=== PATIENT | male | born 1990 | race Caucasian/White ===

== ENCOUNTER 2016-05-28 09:48 | Emergency (ER) | payer MEDICAID, SELFPAY ==
[2016-05-28 10:02] VITALS: BP 161/94
--- NOTE | 2016-05-28 10:17 | EDM.PDOC ---
[id number]: SORE THROAT, TROUBLE BREATHING Time Seen by Provider: 05/28/16 10:05 Source: Reports: Patient History Limitations: Reports: No limitations - History of Present Illness INITIAL COMMENTS - FREE TEXT/NARRATIVE: 25-year-old male with a persistent cough for the last 3 days, pressure on the left side of his chest, sore throat, nasal congestion. He does have a history of asthma but it does not feel like asthma, inhalers are not helping. He has a mild to moderate headache. No significant shortness of breath. No nausea or vomiting, no fevers or chills he knows of. He was at work this morning and they sent him in because he sounded so terrible. Severity: moderate Location, General: Reports: chest Associated Symptoms: Reports: cough, other (Nasal congestion, sore throat). Denies: nausea/vomiting - Related Data Allergies/ADRs: Allergies Allergy/AdvReac Type Severity Reaction Status Date / Time sumatriptan [From Imitrex] Allergy Burning Verified 10/01/13 22:46 sumatriptan succinate Allergy Burning Verified 10/01/13 22:46 [From Imitrex] Home Meds: Home Meds NK [No Known Home Meds] 05/28/16 [History] Past Medical History Respiratory History: Reports: Asthma - Past Surgical History GI Surgical History: Reports: Appendectomy, Cholecystectomy Social & Family History - Tobacco Use Smoking Status *Q: Heavy Tobacco Smoker Years of Tobacco use: 10 Packs/Tins Daily: 1 Second Hand Smoke Exposure: Yes - Caffeine Use Caffeine Use: Reports: Coffee - Alcohol Use Days Per Week of Alcohol Use: 0 - Recreational Drug Use Recreational Drug Use: No Drug Use in Last 12 Months: Yes Recreational Drug Type: Reports: Marijuana/Hashish Recreational Drug Use Frequency: Monthly Recreational Drug Last Use: t-2 ED ROS GENERAL - Review of Systems Review Of Systems: See Below Constitutional: Reports: malaise. Denies: fever, chills HEENT: Reports: Rhinitis, Throat pain. Denies: Ear pain Respiratory: Reports: Cough. Denies: Sputum Cardiovascular: Reports: Chest pain (Left-sided tightness with cough) GI/Abdominal: Denies: Abdominal pain, Nausea, Vomiting : Reports: no symptoms Skin: Reports: no symptoms Neurological: Reports: Headache ED EXAM, GENERAL - Physical Exam Exam: See Below Exam Limited By: No limitations General Appearance: alert, no apparent distress, other (No distress but the patient does have a very persistent dry cough) Throat/Mouth: Other (Pharyngeal erythema is present) Neck: No: lymphadenopathy (R), lymphadenopathy (L) Respiratory/Chest: no respiratory distress, lungs clear. No: wheezing Neurological: alert, oriented Psychiatric: normal affect, normal mood Skin Exam: Warm, Dry Course - Vital Signs Last Recorded V/S: Last Vital Signs Temp 99.2 F 05/28/16 10:02 Pulse 99 05/28/16 10:02 Resp 15 05/28/16 10:02 BP 161/94 H 05/28/16 10:02 Pulse Ox 96 05/28/16 10:02 - Orders/Labs/Meds Orders: Active Orders 24 hr Category Date Time Status Chest 2V [CR] Routine Exams 05/28/16 10:12 Taken CULTURE STREP A CONFIRMATION [RM] Routine Lab 05/28/16 10:12 Results STREP SCRN A RAPID W CULT CONF [] Routine Lab 05/28/16 10:12 Results - Re-Assessments/Exams Free Text/Narrative Re-Assessment/Exam: 05/28/16 10:17 A rapid strep was obtained and the patient received a two-view chest x-ray. 05/28/16 10:24 Chest x-ray was normal. 05/28/16 10:35 Strep was negative. Patient will be treated with 60 mg of prednisone daily for the next 3-6 days along with Tessalon Perles. He can return at any time if worsening. Departure - Departure Time of Disposition: 10:42 Disposition: Home, Self-Care 01 Condition: good Clinical Impression: Bronchitis Instructions: Acute Bronchitis, [id number] Referrals: PCP,None [Primary Care Provider] - Forms: ED Department Discharge Care Plan Goals: Take 6 pills of prednisone with food daily for the next 2-4 days. Use benzonatate pearls as directed for cough suppression. Rest and fluids the next 2-3 days and increase activity as tolerated, consider recheck in 3-4 days if not improving satisfactorily. Return anytime if worsening or concerns. - My Orders Last 24 Hours: My Active Orders 05/28/16 10:12 Chest 2V [CR] Routine CULTURE STREP A CONFIRMATION [RM] Routine STREP SCRN A RAPID W CULT CONF [RM] Routine - Assessment/Plan Last 24 Hours: My Active Orders 05/28/16 10:12 Chest 2V [CR] Routine CULTURE STREP A CONFIRMATION [RM] Routine STREP SCRN A RAPID W CULT CONF [RM] Routine
--- NOTE | 2016-05-30 09:02 | CR ---
Chest 2V HISTORY: Dyspnea FINDINGS: The heart and vascular structures are normal in appearance. No infiltrates or effusions ar e demonstrated. The skeletal structures are unremarkable. IMPRESSION: Negative exam.
== END 2016-05-28 10:42 | disposition home or self-care (01) ==
LOC: JP.ED 09:48
DX: J40 Bronchitis, not specified as acute or chronic (principal); F17.210 Nicotine dependence, cigarettes, uncomplicated; Z90.49 Acquired absence of other specified parts of digestive tract; Z88.8 Allergy status to other drugs, medicaments and biological substances
CPT/HCPCS: 71020; 71020-26; 87081; 87430; 99283; 99285

== ENCOUNTER 2023-11-09 15:12 | Inpatient (IN) | payer MEDICAID ==
[2023-11-09 16:01] LABS: CREATININE 0.8 mg/dL (0.7-1.3); EST CRCL DRUG DOSING (CG) 128.88 mL/min; ESTIMATED GFR 118 mL/min (>60)
[2023-11-09] MEDS: HYDROmorphone 0.5 MG/0.5 ML Syringe IVPUSH ONE (16:13)
[2023-11-09] MEDS: Ondansetron 4 MG/2 ML SDV IVPUSH ONE (16:13)
[2023-11-09 16:19] LABS: BASOPHILS ABSOLUTE AUTO 0.05 K/uL (0.00-0.10); BASOPHILS PERCENT AUTO 0.3 % (0.1-1.3); EOSINOPHILS PERCENT AUTO 0.1 % (0.0-5.4); HEMATOCRIT 44.7 % (38.4-49.7); HEMOGLOBIN 16.8 g/dL (12.9-16.9); IMMATURE GRAN ABSOLUTE AUTO 0.06 K/uL (0.00-0.23); IMMATURE GRAN PERCENT AUTO 0.3 % (0.0-0.7); LYMPHOCYTES PERCENT AUTO 12.2 % (11.4-47.7); MEAN CORPUSCULAR HEMOGLOBIN 33.6 pg (31.6-35.5); MEAN CORPUSCULAR HGB CONC 37.6 g/dL (31.6-35.5); MEAN CORPUSCULAR VOLUME 89.4 fL (81.4-99.0); MONOCYTES ABSOLUTE AUTO 1.59 K/uL (0.20-0.90); MONOCYTES PERCENT AUTO 9.3 % (3.3-12.6); NEUTROPHILS ABSOLUTE AUTO 13.34 K/uL (1.0-7.6); NEUTROPHILS PERCENT AUTO 77.8 % (40.0-78.1); PLATELET COUNT,PLT 343 K/uL (130-375); WHITE BLOOD CELL COUNT,WBC 17.2 K/uL (3.2-11.0)
[2023-11-09] MEDS: Sodium Chloride 0.9% 1,000 ML IV SCH ×3 (16:19→19:13)
[2023-11-09 16:20] LABS: EOSINOPHILS ABSOLUTE AUTO 0.02 K/uL (0.00-0.40)
[2023-11-09] MEDS: Iopamidol 612 MG/ML 100 ML Bottle IV SCH (16:24)
[2023-11-09] MEDS: Sodium Chloride 0.9% 80 ML IV SCH (16:24)
[2023-11-09 16:47] LABS: A/G RATIO 0.8 (1.2-2.2); ALANINE AMINOTRANSFERASE,ALT 32 U/L (12-78); ALBUMIN 3.6 g/dL (3.4-5.0); ALKALINE PHOSPHATASE 100 U/L (46-116); ASPARTATE AMNIOTRANSFERASE,AST 17 U/L (15-37); BILIRUBIN TOTAL 1.1 mg/dL (0.2-1.0); BLOOD UREA NITROGEN,BUN 10 mg/dL (7-18); C-REACTIVE PROTEIN 13.16 mg/dL (<0.50); CALCIUM 9.7 mg/dL (8.5-10.1); CARBON DIOXIDE,CO2 32 mmol/L (21-32); CHLORIDE,CL 99 mmol/L (100-108); GLUCOSE RANDOM 124 mg/dL (74-106); POTASSIUM,K 3.8 mmol/L (3.6-5.2); SODIUM,NA 139 mmol/L (140-148)
[2023-11-09 16:48] LABS: ANION GAP 11.8 mmol/L (5.0-14.0)
[2023-11-09 17:32] LABS: APPEARANCE,URINE SLIGHTLY CLOUDY (CLEAR); BILIRUBIN,URINE NEGATIVE (NEGATIVE); COLOR,URINE YELLOW (YELLOW); GLUCOSE,URINE NEGATIVE (NEGATIVE); KETONES,URINE TRACE mg/dL (NEGATIVE); LEUKOCYTE ESTERASE,URINE NEGATIVE (NEGATIVE); NITRITE,URINE NEGATIVE (NEGATIVE); OCCULT BLOOD,URINE NEGATIVE (NEGATIVE); PROTEIN,URINE 30 mg/dL (NEGATIVE); UROBILINOGEN,URINE 0.2 EU/dL (0.2-1.0)
[2023-11-09 17:53] LABS: AMORPHOUS SEDIMENT,URINE NOT SEEN; BACTERIA,URINE FEW; EPITHELIAL CELLS,URINE NOT SEEN; MUCUS,URINE FEW; RBC,URINE 0-5 (0-5); WBC,URINE 0-5 (0-5)
[2023-11-09] MEDS: Piperacillin/Tazobactam 4.5 GM in Sodium Chloride 0.9% 100 ML IV ONE (18:10)
[2023-11-09] MEDS: fentaNYL 100 MCG/2 ML SDV IVPUSH ONE (18:54)
[2023-11-09] MEDS: HYDROmorphone 1 MG/ML Syringe IVPUSH ONE (21:08)
[2023-11-09] MEDS ORDERED: Ondansetron 4 MG/2 ML SDV IV PRN (21:23)
[2023-11-09] MEDS ORDERED: fentaNYL 50 MCG/ML SDV IVPUSH PRN (21:23)
[2023-11-09] MEDS ORDERED: LORazepam 2 MG/ML SDV IV PRN (21:23)
[2023-11-09] MEDS: OLANZapine 5 MG Tab PO SCH (22:01)
[2023-11-09] MEDS: Propranolol 40 MG Tab PO SCH (22:02)
[2023-11-09] MEDS: risperiDONE 1 MG Tab PO SCH (22:02)
[2023-11-09] MEDS ORDERED: HYDROmorphone 1 MG/ML Syringe IVPUSH PRN (22:11)
[2023-11-09] MEDS: Sodium Chloride 0.9% 100 ML ONE (23:14)
[2023-11-09] MEDS: Piperacillin/Tazobactam 4.5 GM in Sodium Chloride 0.9% 100 ML IV SCH (23:29)
[2023-11-09] MEDS: Pantoprazole 40 MG Vial IVPUSH SCH (23:29)
[2023-11-09] MEDS: Acetaminophen 325 MG Tab PO PRN (23:56)
[2023-11-10] MEDS: Albuterol 6.7 GM Inhaler INH PRN (02:15)
[2023-11-10 05:13] LABS: BASOPHILS ABSOLUTE AUTO 0.05 K/uL (0.00-0.10); BASOPHILS PERCENT AUTO 0.5 % (0.1-1.3); EOSINOPHILS ABSOLUTE AUTO 0.14 K/uL (0.00-0.40); EOSINOPHILS PERCENT AUTO 1.3 % (0.0-5.4); HEMATOCRIT 37.2 % (38.4-49.7); HEMOGLOBIN 13.6 g/dL (12.9-16.9); IMMATURE GRAN ABSOLUTE AUTO 0.03 K/uL (0.00-0.23); IMMATURE GRAN PERCENT AUTO 0.3 % (0.0-0.7); LYMPHOCYTES ABSOLUTE AUTO 2.43 K/uL (0.8-3.3); LYMPHOCYTES PERCENT AUTO 22.2 % (11.4-47.7); MEAN CORPUSCULAR HEMOGLOBIN 32.9 pg (31.6-35.5); MEAN CORPUSCULAR HGB CONC 36.6 g/dL (31.6-35.5); MEAN CORPUSCULAR VOLUME 90.1 fL (81.4-99.0); MONOCYTES ABSOLUTE AUTO 1.16 K/uL (0.20-0.90); MONOCYTES PERCENT AUTO 10.6 % (3.3-12.6); NEUTROPHILS ABSOLUTE AUTO 7.15 K/uL (1.0-7.6); NEUTROPHILS PERCENT AUTO 65.1 % (40.0-78.1); PLATELET COUNT,PLT 269 K/uL (130-375); RED BLOOD CELL COUNT 4.13 M/uL (4.14-5.76)
[2023-11-10 05:29] LABS: A/G RATIO 0.7 (1.2-2.2); ALANINE AMINOTRANSFERASE,ALT 38 U/L (12-78); ALBUMIN 2.6 g/dL (3.4-5.0); ALKALINE PHOSPHATASE 75 U/L (46-116); ASPARTATE AMNIOTRANSFERASE,AST 28 U/L (15-37); BILIRUBIN TOTAL 1.1 mg/dL (0.2-1.0); BLOOD UREA NITROGEN,BUN 9 mg/dL (7-18); CALCIUM 8.3 mg/dL (8.5-10.1); CARBON DIOXIDE,CO2 27 mmol/L (21-32); CHLORIDE,CL 106 mmol/L (100-108); CREATININE 0.8 mg/dL (0.8-1.3); EST CRCL DRUG DOSING (CG) 128.88 mL/min; ESTIMATED GFR 118 mL/min (>60); GLUCOSE RANDOM 95 mg/dL (74-106); POTASSIUM,K 3.5 mmol/L (3.6-5.2); PROTEIN TOTAL,TP 6.1 g/dL (6.4-8.2); SODIUM,NA 141 mmol/L (140-148)
[2023-11-10 05:34] LABS: ANION GAP 11.5 mmol/L (5.0-14.0)
[2023-11-10] MEDS: Piperacillin/Tazobactam/Dext 4.5 GM in Premix Bag 1 BAG IV SCH (08:05)
[2023-11-10] MEDS: ARIPiprazole 10 MG Tab PO SCH (08:06)
[2023-11-10] MEDS: Sertraline 25 MG Tab PO SCH (08:06)
[2023-11-10] MEDS: QUEtiapine 100 MG Tab PO SCH (08:06)
[2023-11-10] MEDS: Nicotine Polacrilex 2 MG Gum CHEW PRN (08:16)
[2023-11-10] MEDS: Potassium Chloride 20 MEQ Tab.ER PO ONE (08:16)
[2023-11-10] MEDS ORDERED: Ibuprofen 600 MG Tab PO PRN (11:32)
[2023-11-10] MEDS: Pantoprazole 40 MG Vial IVPUSH SCH (20:47)
[2023-11-10] MEDS: OLANZapine 5 MG Tab PO SCH (20:48)
[2023-11-10] MEDS: risperiDONE 1 MG Tab PO SCH (20:48)
[2023-11-11 04:50] LABS: HEMATOCRIT 37.6 % (38.4-49.7); MEAN CORPUSCULAR HEMOGLOBIN 33.4 pg (31.6-35.5); MEAN CORPUSCULAR HGB CONC 37.2 g/dL (31.6-35.5); MEAN CORPUSCULAR VOLUME 89.7 fL (81.4-99.0); RED BLOOD CELL COUNT 4.19 M/uL (4.14-5.76); WHITE BLOOD CELL COUNT,WBC 10.1 K/uL (3.2-11.0)
[2023-11-11 05:09] LABS: ANION GAP 11.2 mmol/L (5.0-14.0); C-REACTIVE PROTEIN 6.71 mg/dL (<0.50); CALCIUM 9.1 mg/dL (8.5-10.1); EST CRCL DRUG DOSING (CG) 103.1 mL/min; POTASSIUM,K 3.6 mmol/L (3.6-5.2)
[2023-11-11 12:00] VITALS: BP 130/62; PULSE 83
== END 2023-11-11 12:17 | disposition home or self-care (01) | DRG 392 ==
LOC: JP.ED 15:12 → JP.MS 20:00
PROVIDERS: ADMIT Internal Medicine; ATTEND Internal Medicine
DX: K57.20 Diverticulitis of large intestine with perforation and abscess without bleeding (principal); J45.909 Unspecified asthma, uncomplicated; F41.9 Anxiety disorder, unspecified; F32.A Depression, unspecified; K21.9 Gastro-esophageal reflux disease without esophagitis; F17.210 Nicotine dependence, cigarettes, uncomplicated; Z88.8 Allergy status to other drugs, medicaments and biological substances; Z79.899 Other long term (current) drug therapy; Z90.49 Acquired absence of other specified parts of digestive tract
CPT/HCPCS: 36415; 74177; 80048; 80053; 81001; 83605; 85025; 85027; 86140; 94640; 96361; 96365; 96375; 99222; 99232; 99238; 99285; 99285-25; A9270-GY; J1171; J2405; J2470; J2543; J3010; J3490; J7030; Q9967

== ENCOUNTER 2024-07-22 09:10 | Inpatient (IN) | payer MEDICAID ==
[2024-07-22 09:58] LABS: BASOPHILS ABSOLUTE AUTO 0.07 K/uL (0.00-0.10); BASOPHILS PERCENT AUTO 0.5 % (0.1-1.3); EOSINOPHILS ABSOLUTE AUTO 0.18 K/uL (0.00-0.40); EOSINOPHILS PERCENT AUTO 1.3 % (0.0-5.4); HEMATOCRIT 45.5 % (38.4-49.7); HEMOGLOBIN 16.4 g/dL (12.9-16.9); IMMATURE GRAN ABSOLUTE AUTO 0.05 K/uL (0.00-0.23); IMMATURE GRAN PERCENT AUTO 0.3 % (0.0-0.7); LYMPHOCYTES ABSOLUTE AUTO 2.43 K/uL (0.8-3.3); LYMPHOCYTES PERCENT AUTO 16.9 % (11.4-47.7); MEAN CORPUSCULAR HEMOGLOBIN 33.5 pg (31.6-35.5); MONOCYTES PERCENT AUTO 8.3 % (3.3-12.6); NEUTROPHILS ABSOLUTE AUTO 10.45 K/uL (1.0-7.6); NEUTROPHILS PERCENT AUTO 72.7 % (40.0-78.1); PLATELET COUNT,PLT 411 K/uL (130-375); RED BLOOD CELL COUNT 4.89 M/uL (4.14-5.76); WHITE BLOOD CELL COUNT,WBC 14.4 K/uL (3.2-11.0)
[2024-07-22] MEDS: Sodium Chloride 0.9% 1,000 ML IV SCH ×3 (09:58→14:57)
[2024-07-22] MEDS: Ondansetron 4 MG/2 ML SDV IVPUSH ONE (10:01)
[2024-07-22] MEDS: HYDROmorphone 0.5 MG/0.5 ML Syringe IVPUSH ONE ×2 (10:04→12:59)
[2024-07-22 10:22] LABS: A/G RATIO 0.7 (1.2-2.2); ALANINE AMINOTRANSFERASE,ALT 30 U/L (12-78); ALBUMIN 3.4 g/dL (3.4-5.0); ALKALINE PHOSPHATASE 114 U/L (46-116); ASPARTATE AMNIOTRANSFERASE,AST 12 U/L (15-37); BILIRUBIN TOTAL 0.9 mg/dL (0.2-1.0); BLOOD UREA NITROGEN,BUN 14 mg/dL (7-18); CALCIUM 10.4 mg/dL (8.5-10.1); CARBON DIOXIDE,CO2 24 mmol/L (21-32); CHLORIDE,CL 99 mmol/L (100-108); CREATININE 0.9 mg/dL (0.8-1.3); EST CRCL DRUG DOSING (CG) 110.83 mL/min; ESTIMATED GFR 114 mL/min (>60); GLUCOSE RANDOM 104 mg/dL (74-106); PROTEIN TOTAL,TP 8.3 g/dL (6.4-8.2); SODIUM,NA 137 mmol/L (140-148)
[2024-07-22] MEDS: Iopamidol 612 MG/ML 100 ML Bottle IV SCH (11:40)
[2024-07-22] MEDS: Sodium Chloride 0.9% 80 ML IV SCH (11:40)
[2024-07-22] MEDS: Sodium Chloride 0.9% 10 ML Syringe FLUSH ONE (11:41)
[2024-07-22] MEDS: Levofloxacin/Dextrose 5%-Water 750 MG in Premix Bag 1 BAG IV ONE (13:03)
[2024-07-22] MEDS: Potassium Chloride 10 MEQ in Premix Bag 1 BAG IV ONE (13:04)
[2024-07-22] MEDS ORDERED: Ondansetron 4 MG/2 ML SDV IV PRN (14:16)
[2024-07-22] MEDS ORDERED: Naloxone 0.4 MG/ML SDV IVPUSH PRN (14:16)
[2024-07-22] MEDS ORDERED: Sodium Chloride 0.9% 10 ML Syringe FLUSH PRN (14:16)
[2024-07-22] MEDS: Nicotine 14 MG/24 Hr Patch TRDERM SCH (14:58)
[2024-07-22] MEDS ORDERED: Piperacillin/Tazobactam/Dext 4.5 GM in Premix Bag 1 BAG IV ONE (15:00)
[2024-07-22] MEDS: Piperacillin/Tazobactam/Dext 4.5 GM in Premix Bag 1 BAG IV ONE (16:09)
[2024-07-22] MEDS: HYDROmorphone 0.5 MG/0.5 ML Syringe IVPUSH PRN (18:44)
[2024-07-22] MEDS: Piperacillin/Tazobactam/Dext 4.5 GM in Premix Bag 1 BAG IV SCH (20:54)
[2024-07-22] MEDS: hydrOXYzine HCl 10 MG Tab PO SCH (21:18)
[2024-07-22] MEDS: QUEtiapine 100 MG Tab PO SCH (21:18)
[2024-07-22] MEDS: Propranolol 20 MG Tab PO SCH (21:18)
[2024-07-22] MEDS: Propranolol 40 MG Tab ONE (21:22)
[2024-07-23 04:47] LABS: HEMATOCRIT 38.8 % (38.4-49.7); HEMOGLOBIN 13.5 g/dL (12.9-16.9); MEAN CORPUSCULAR HEMOGLOBIN 33.1 pg (31.6-35.5); MEAN CORPUSCULAR HGB CONC 34.8 g/dL (31.6-35.5); MEAN CORPUSCULAR VOLUME 95.1 fL (81.4-99.0); RED BLOOD CELL COUNT 4.08 M/uL (4.14-5.76); WHITE BLOOD CELL COUNT,WBC 8.7 K/uL (3.2-11.0)
[2024-07-23 05:02] LABS: CALCIUM 8.5 mg/dL (8.5-10.1); CREATININE 0.8 mg/dL (0.8-1.3); EST CRCL DRUG DOSING (CG) 128.88 mL/min; MAGNESIUM 1.4 mg/dL (1.8-2.4)
[2024-07-23] MEDS: Potassium Chloride 10 MEQ in Premix Bag 1 BAG IV SCH ×2 (08:39→18:11)
[2024-07-23] MEDS ORDERED: risperiDONE 1 MG Tab PO SCH (09:00)
[2024-07-23] MEDS ORDERED: OLANZapine 5 MG Tab PO SCH (09:00)
[2024-07-23] MEDS ORDERED: QUEtiapine 100 MG Tab PO SCH (09:00)
[2024-07-23] MEDS: Magnesium Sulfate 2 GM/50 mL 2 GM in Premix Bag 1 BAG IV SCH (09:43)
[2024-07-23] MEDS: Magnesium Oxide 400 MG Tab PO SCH (10:38)
[2024-07-23] MEDS: ARIPiprazole 10 MG Tab PO SCH (10:38)
[2024-07-23] MEDS: Potassium Chloride 20 MEQ Tab.ER PO ONE (10:38)
[2024-07-23] MEDS: Sertraline 25 MG Tab PO SCH (10:39)
[2024-07-23] MEDS ORDERED: HYDROmorphone 0.5 MG/0.5 ML Syringe IVPUSH PRN (12:14)
[2024-07-23] MEDS: HYDROmorphone 1 MG/ML Syringe IVPUSH PRN (16:36)
[2024-07-23] MEDS: OLANZapine 5 MG Tab PO SCH (20:51)
[2024-07-23] MEDS: risperiDONE 1 MG Tab PO SCH (20:51)
[2024-07-24 05:57] LABS: CALCIUM 8.4 mg/dL (8.5-10.1); CREATININE 0.7 mg/dL (0.8-1.3); EST CRCL DRUG DOSING (CG) 147.29 mL/min; MAGNESIUM 1.8 mg/dL (1.8-2.4); POTASSIUM,K 3.3 mmol/L (3.6-5.2)
[2024-07-24 06:00] LABS: ANION GAP 15.3 mmol/L (5.0-14.0)
[2024-07-24] MEDS: Potassium Chloride 10 MEQ in Premix Bag 1 BAG IV SCH (08:10)
[2024-07-24] MEDS: Potassium Chloride 20 MEQ Tab.ER PO ONE (15:50)
[2024-07-25 05:47] VITALS: BP 147/86; PULSE 68
[2024-07-25] MEDS: Potassium Chloride 20 MEQ Tab.ER PO ONE (08:33)
== END 2024-07-25 10:47 | disposition home or self-care (01) | DRG 392 ==
LOC: JP.ED 09:10 → JP.MS 13:19
PROVIDERS: ADMIT Hospitalist; ATTEND Hospitalist
DX: K57.20 Diverticulitis of large intestine with perforation and abscess without bleeding (principal); H54.7 Unspecified visual loss; J45.909 Unspecified asthma, uncomplicated; K21.9 Gastro-esophageal reflux disease without esophagitis; F41.9 Anxiety disorder, unspecified; F32.A Depression, unspecified; F12.90 Cannabis use, unspecified, uncomplicated; E86.0 Dehydration; Z88.8 Allergy status to other drugs, medicaments and biological substances; Z79.899 Other long term (current) drug therapy; Z90.49 Acquired absence of other specified parts of digestive tract; Z72.0 Tobacco use
CPT/HCPCS: 36415; 74177; 74177-26; 80048; 80053; 83735; 84132; 85025; 85027; 86140; 99222; 99231; 99238; A9270-GY; J1171; J1956; J2405; J2543; J3475; J3480; J7030; Q9967

== ENCOUNTER 2024-09-09 07:28 | Day surgery (SDC) | payer MEDICAID ==
[2024-09-09] MEDS ORDERED: fentaNYL 100 MCG/2 ML SDV ONE (08:12)
[2024-09-09] MEDS ORDERED: Midazolam 1 MG/ML 2 ML SDV ONE (08:12)
[2024-09-09] MEDS ORDERED: Propofol 200 MG/20 ML SDV ONE ×2 (08:12→09:25)
[2024-09-09] MEDS: Lactated Ringers 1,000 ML IV SCH (08:27)
[2024-09-09 10:35] VITALS: PULSE 54
[2024-09-09 11:08] VITALS: BP 122/87
== END 2024-09-09 11:30 | disposition home or self-care (01) ==
LOC: JP.SDS 07:28
PROVIDERS: ATTEND Surgery
DX: K52.9 Noninfective gastroenteritis and colitis, unspecified (principal); K57.32 Diverticulitis of large intestine without perforation or abscess without bleeding
CPT/HCPCS: 00811; 45381; J2250; J2704; J3010; J7120

== ENCOUNTER 2024-09-10 07:34 | Inpatient (IN) | payer MEDICAID ==
[2024-09-10] MEDS: Lactated Ringers 1,000 ML IV SCH (07:56)
[2024-09-10] MEDS ORDERED: fentaNYL 250 MCG/5 ML SDV ONE ×2 (08:09→09:47)
[2024-09-10] MEDS ORDERED: Glycopyrrolate 0.2 MG/ML 5 ML MDV ONE (08:09)
[2024-09-10] MEDS ORDERED: Dexamethasone 4 MG/ML SDV ONE (08:09)
[2024-09-10] MEDS ORDERED: Propofol 200 MG/20 ML SDV ONE (08:09)
[2024-09-10] MEDS ORDERED: Succinylcholine 200 MG/10 ML MDV ONE (08:09)
[2024-09-10] MEDS ORDERED: Ondansetron 4 MG/2 ML SDV ONE (08:09)
[2024-09-10] MEDS: Heparin Sodium 5,000 Units/ML Vial SUBCUT ONE (08:20)
[2024-09-10] MEDS ORDERED: Naloxone 0.4 MG/ML SDV IVPUSH PRN (09:00)
[2024-09-10] MEDS: Bupivacaine 0.5%/EPINEPHrine 1:200,000 50 ML MDV ONE (10:09)
[2024-09-10] MEDS ORDERED: Lactated Ringers 1,000 ML ONE (10:59)
[2024-09-10] MEDS ORDERED: fentaNYL 100 MCG/2 ML SDV ONE (13:25)
[2024-09-10] MEDS ORDERED: Ketorolac 30 MG/ML SDV ONE (13:36)
[2024-09-10] MEDS ORDERED: Ondansetron 4 MG/2 ML SDV IV PRN (14:02)
[2024-09-10] MEDS: Simethicone 125 MG Tab.Chew PO PRN (15:28)
[2024-09-10] MEDS: Ketorolac 15 MG/ML SDV IVPUSH SCH (20:03)
[2024-09-11] MEDS: Heparin Sodium 5,000 Units/ML Vial SUBCUT SCH (05:19)
[2024-09-11 05:55] LABS: PLATELET COUNT,PLT 275 K/uL (130-375); RED BLOOD CELL COUNT 3.92 M/uL (4.14-5.76); WHITE BLOOD CELL COUNT,WBC 9.0 K/uL (3.2-11.0)
[2024-09-11 06:19] LABS: LYMPHOCYTES ABSOLUTE MAN 3.42 K/uL (0.8-3.3); LYMPHOCYTES PERCENT MAN 38 % (24-44); METAMYELOCYTE ABSOLUTE MAN 0.18 K/uL; METAMYELOCYTE PERCENT MAN 2 %; MONOCYTES ABSOLUTE MAN 0.36 K/uL (0.20-0.90); MONOCYTES PERCENT MAN 4 % (2-6); NEUTROPHILS ABSOLUTE MAN 5.04 K/uL (1.0-7.6); SEG NEUTROPHILS PERCENT MAN 56 % (36-66)
[2024-09-11 06:20] LABS: ATYPICAL LYMPHOCYTES RARE
[2024-09-12 06:08] LABS: PLATELET COUNT,PLT 257 K/uL (130-375); RED BLOOD CELL COUNT 3.72 M/uL (4.14-5.76); WHITE BLOOD CELL COUNT,WBC 8.3 K/uL (3.2-11.0)
[2024-09-12 06:23] LABS: BLOOD UREA NITROGEN,BUN 8.0 mg/dL (7-18); CARBON DIOXIDE,CO2 32.0 mmol/L (21-32); CHLORIDE,CL 103.0 mmol/L (100-108); CREATININE 0.8 mg/dL (0.8-1.3); EST CRCL DRUG DOSING (CG) 123.5 mL/min; ESTIMATED GFR 118.0 mL/min (>60); GLUCOSE RANDOM 94.0 mg/dL (74-106); POTASSIUM,K 3.0 mmol/L (3.6-5.2); SODIUM,NA 140.0 mmol/L (140-148)
[2024-09-12 06:39] LABS: ATYPICAL LYMPHOCYTES RARE; EOSINOPHILS ABSOLUTE MAN 0.08 K/uL (0.00-0.40); EOSINOPHILS PERCENT MAN 1 % (2-4); LYMPHOCYTES ABSOLUTE MAN 2.99 K/uL (0.8-3.3); LYMPHOCYTES PERCENT MAN 36 % (24-44); MONOCYTES ABSOLUTE MAN 0.66 K/uL (0.20-0.90); MONOCYTES PERCENT MAN 8 % (2-6); NEUTROPHILS ABSOLUTE MAN 4.57 K/uL (1.0-7.6); SEG NEUTROPHILS PERCENT MAN 55 % (36-66)
[2024-09-12 11:58] VITALS: BP 152/94; PULSE 65
== END 2024-09-12 13:56 | disposition home or self-care (01) | DRG 331 ==
LOC: JP.SDS 07:34 → JP.MS 14:00
PROVIDERS: ADMIT Surgery; ATTEND Surgery
PROC: 0DBN4ZZ Excision of Sigmoid Colon, Percutaneous Endoscopic Approach (ICD-10-PCS; principal; 2024-09-10 08:45)
DX: K57.32 Diverticulitis of large intestine without perforation or abscess without bleeding (principal); J45.909 Unspecified asthma, uncomplicated; F41.1 Generalized anxiety disorder; K21.9 Gastro-esophageal reflux disease without esophagitis; F43.12 Post-traumatic stress disorder, chronic; F25.0 Schizoaffective disorder, bipolar type; F17.210 Nicotine dependence, cigarettes, uncomplicated; F12.10 Cannabis abuse, uncomplicated; Z90.49 Acquired absence of other specified parts of digestive tract; Z79.899 Other long term (current) drug therapy; Z79.51 Long term (current) use of inhaled steroids
CPT/HCPCS: 36415; 80048; 85025; 86850; 86900; 86901; A9270-GY; C1889; J0131; J0330; J0694; J1100; J1171; J1596; J1644; J1885; J1920; J2405; J2470; J2704; J2710; J3010; J3490; J7030; J7120